=== PATIENT | female | born 1950 | race Caucasian/White ===

== ENCOUNTER 2017-03-22 20:52 | Emergency (ER) | payer MEDICARE, BC ==
[~2017-03-22] VITALS: Ht 165.1 cm; Wt 129.5 kg
[2017-03-22] MEDS ORDERED: NORVASC 10MG10 MG PO (21:26)
[2017-03-22] MEDS ORDERED: LASIX20 M1 PO (21:26)
[2017-03-22] MEDS ORDERED: SYNTHROID0.125 MG PO (21:26)
[2017-03-22] MEDS ORDERED: COZAAR100 MG PO (21:26)
[2017-03-22] MEDS ORDERED: ZYRTEC10 M3 PO (21:27)
[2017-03-22] MEDS ORDERED: PROTONIX TR40 M1 PO (21:27)
[2017-03-22] MEDS ORDERED: SINGULAIR PO (21:27)
[2017-03-22] MEDS ORDERED: ZOCOR10 M1 PO (21:27)
[2017-03-22] MEDS ORDERED: CALCIUM + D SO1 EACH PO (21:27)
[2017-03-22] MEDS ORDERED: NATURE'S BOUNTY1 TAB PO (21:28)
[2017-03-22] MEDS ORDERED: ASPIRIN 81M81 MG/TA2 PO (21:28)
[2017-03-22] MEDS ORDERED: FISH OIL1 IU PO (21:28)
[2017-03-22 22:00] VITALS: BP 180/88
== END 2017-03-22 22:00 | disposition home or self-care (01) ==
LOC: ED 20:52
DX: T63.461A Toxic effect of venom of wasps, accidental (unintentional), initial encounter (principal); L29.9 Pruritus, unspecified; I10 Essential (primary) hypertension; E03.9 Hypothyroidism, unspecified; E78.5 Hyperlipidemia, unspecified; K21.9 Gastro-esophageal reflux disease without esophagitis; J45.909 Unspecified asthma, uncomplicated

== ENCOUNTER → 2017-05-21 | Outpatient (CLI) | payer MEDICARE, BC ==
[~2017-05-21] MED LIST: ASPIRIN 81M81 MG/TA2 PO; CALCIUM + D SO1 EACH PO; COZAAR100 MG PO; FISH OIL1 IU PO; LASIX20 M1 PO; NATURE'S BOUNTY1 TAB PO; NORVASC 10MG10 MG PO; PROTONIX TR40 M1 PO; SINGULAIR PO; SYNTHROID0.125 MG PO; ZOCOR10 M1 PO; ZYRTEC10 M3 PO
== END ==
LOC: LAB 11:28
DX: I10 Essential (primary) hypertension (principal); E66.01 Morbid (severe) obesity due to excess calories

== ENCOUNTER → 2017-09-09 | Outpatient (CLI) | payer MEDICARE, BC | LOC: RAD 08:54 | DX: E04.1 Nontoxic single thyroid nodule (principal); E03.9 Hypothyroidism, unspecified; Z92.3 Personal history of irradiation ==

== ENCOUNTER → 2017-11-18 | Outpatient (CLI) | payer MEDICARE, BC ==
[2017-11-18 12:52] LABS: CALCIUM 10.4 mg/dL (8.4-10.2); POTASSIUM 4.3 mmol/L (3.6-5.0)
[2017-11-19 03:24] LABS: CREATININE OTHER SOURCE 35 mg/dL (())
== END ==
LOC: LAB 12:10
PROVIDERS: Internal Medicine
DX: E83.52 Hypercalcemia (principal); R60.0 Localized edema

== ENCOUNTER → 2018-05-18 | Outpatient (CLI) | payer MEDICARE, BC ==
[2018-05-19 00:34] LABS: CREATININE OTHER SOURCE 43 mg/dL (())
== END ==
LOC: LAB 13:58
PROVIDERS: Internal Medicine
DX: I15.8 Other secondary hypertension (principal)

== ENCOUNTER → 2018-11-19 | Outpatient (CLI) | payer MEDICARE, BC ==
[2018-11-19 09:00] LABS: CALCIUM 10.6 mg/dL (8.4-10.2)
[2018-11-19 18:07] LABS: CREATININE OTHER SOURCE 14 mg/dL (())
== END ==
LOC: LAB 08:25
PROVIDERS: Internal Medicine
DX: E83.52 Hypercalcemia (principal); I15.8 Other secondary hypertension

== ENCOUNTER → 2019-01-18 | Day surgery (SDC) | payer MEDICARE, BC | LOC: MSO 14:12 | DX: K21.9 Gastro-esophageal reflux disease without esophagitis (principal); Z79.82 Long term (current) use of aspirin; Z90.710 Acquired absence of both cervix and uterus; Z88.0 Allergy status to penicillin; Z88.2 Allergy status to sulfonamides; Z88.6 Allergy status to analgesic agent; Z88.5 Allergy status to narcotic agent; Z88.8 Allergy status to other drugs, medicaments and biological substances; I10 Essential (primary) hypertension; J45.909 Unspecified asthma, uncomplicated | CPT/HCPCS: 00731; J2704; J7120 ==

== ENCOUNTER 2019-02-05 22:18 | Emergency (ER) | payer MEDICARE, BC ==
[~2019-02-05] VITALS: Ht 165.1 cm; Wt 133.6 kg
[2019-02-05 23:22] VITALS: BP 155/79
== END 2019-02-05 23:22 | disposition home or self-care (01) ==
LOC: ED 22:18
DX: R04.0 Epistaxis (principal); I10 Essential (primary) hypertension; E78.5 Hyperlipidemia, unspecified; Z79.82 Long term (current) use of aspirin

== ENCOUNTER → 2019-04-25 | Outpatient (CLI) | payer MEDICARE, BC | LOC: VAS 15:27 → RAD 16:00 → VAS 16:00 | PROVIDERS: Internal Medicine Pulmonary Disease | DX: R06.02 Shortness of breath (principal) ==

== ENCOUNTER 2019-06-11 15:27 | Emergency (ER) | payer MEDICARE, BC ==
[~2019-06-11 15:27] MED LIST changes: -ASPIRIN 81M81 MG/TA2 PO; +ASPIRIN E.C. 8181 MG PO; +FISH OIL 1,0001 EAC1 PO; -FISH OIL1 IU PO
[2019-06-11] MEDS ORDERED: DOXYCYCLINE MO100 M3 PO (16:32)
[2019-06-11] MEDS ORDERED: RT ALBUTEROL CC18 GM IH (16:33)
[2019-06-11 16:57] LABS: EOS # 0.1 (0.04-0.40); EOS % 0.9 % (1.0-5.0); HEMATOCRIT 40.6 % (37.0-47.0); HEMOGLOBIN 12.8 g/dL (12.5-16.0); MEAN CELL VOLUME 89 fl (78-100); MEAN CORPUSCULAR HEMOGLOBIN 28 pg (27-31); MEAN CORPUSCULAR HGB CONC 32 g/dL (33-37); MEAN PLATELET VOLUME 9.6 fl (7.4-10.4); MONO # 0.5 (0.20-0.80); NEU # 5.2 (1.40-6.50); PLATELET COUNT 468 K/mm3 (130-400); RED BLOOD COUNT 4.55 M/mm3 (4.10-5.30); WHITE BLOOD COUNT 7.8 K/mm3 (4.8-10.8)
[2019-06-11 17:04] LABS: ALBUMIN 4.2 g/dL (3.4-4.8)
[2019-06-11 17:05] LABS: POTASSIUM 3.3 mmol/L (3.5-5.1)
[2019-06-11 17:06] LABS: CALCIUM 10.6 mg/dL (8.3-10.5)
[2019-06-11 17:07] LABS: TOTAL PROTEIN 7.2 g/dL (6.2-8.1)
[2019-06-11 17:09] LABS: TOTAL BILIRUBIN 0.4 mg/dL (0.2-1.2)
[2019-06-11 19:50] VITALS: BP 147/72
== END 2019-06-11 19:50 | disposition home or self-care (01) ==
LOC: ED 15:27
PROVIDERS: Family Medicine
DX: R06.1 Stridor (principal); I10 Essential (primary) hypertension; K21.9 Gastro-esophageal reflux disease without esophagitis; Z90.89 Acquired absence of other organs; Z90.710 Acquired absence of both cervix and uterus; Z99.81 Dependence on supplemental oxygen; Z91.14 Patient's other noncompliance with medication regimen
CPT/HCPCS: J0171; J1100; J1200; J2060; J3490; Q9967

== ENCOUNTER → 2019-09-20 | Outpatient (CLI) | payer MEDICARE, BC ==
[~2019-09-20] MED LIST changes: +DOXYCYCLINE MO100 M3 PO; +RT ALBUTEROL CC18 GM IH
[2019-09-20 12:14] LABS: ALBUMIN 4.2 g/dL (3.4-4.8); POTASSIUM 4.4 mmol/L (3.5-5.1)
[2019-09-20 12:16] LABS: CALCIUM 10.3 mg/dL (8.3-10.5)
== END ==
LOC: LAB 11:53
PROVIDERS: Internal Medicine Nephrology
DX: I15.8 Other secondary hypertension (principal)

== ENCOUNTER → 2020-07-10 | Outpatient (CLI) | payer MEDICARE, BC | LOC: LAB 14:08 | DX: D3A.8 Other benign neuroendocrine tumors (principal) ==

== ENCOUNTER → 2020-09-18 | Outpatient (CLI) | payer MEDICARE, BC ==
[2020-09-18 11:44] LABS: POTASSIUM 4.1 mmol/L (3.5-5.1)
[2020-09-18 11:45] LABS: CALCIUM 10.1 mg/dL (8.3-10.5)
== END ==
LOC: LAB 11:20
PROVIDERS: Internal Medicine Nephrology
DX: I15.8 Other secondary hypertension (principal); R60.0 Localized edema

== ENCOUNTER → 2020-10-18 | Outpatient (CLI) | payer MEDICARE, BC ==
[~2020-10-18] MED LIST changes: +CLEOCIN HCL150 M1 PO; +FOLIXAPURE5000 UNIT PO; +METOPROLOL SUCC25 M1 PO; -NATURE'S BOUNTY1 TAB PO
== END ==
LOC: RAD 17:56
DX: M25.561 Pain in right knee (principal)

== ENCOUNTER → 2020-10-22 | Outpatient (CLI) | payer MEDICARE, BC | LOC: RAD 10-19 13:45 → VAS 13:12 → RAD 13:45 | DX: M79.89 Other specified soft tissue disorders (principal); M25.561 Pain in right knee ==

== ENCOUNTER → 2020-11-08 | Outpatient (CLI) | payer MEDICARE, BC | LOC: RAD 15:58 | DX: M17.11 Unilateral primary osteoarthritis, right knee (principal); M23.306 Other meniscus derangements, unspecified meniscus, right knee ==

== ENCOUNTER 2021-02-02 03:15 | Emergency (ER) | payer MEDICARE, BC ==
[~2021-02-02 03:15] MED LIST changes: -CLEOCIN HCL150 M1 PO; -METOPROLOL SUCC25 M1 PO
[2021-02-02] MEDS ORDERED: METOPROLOL SUCC25 M1 PO (03:47)
[2021-02-02 04:42] LABS: BASO # 0.04 (0.02-0.10); EOS # 0.12 (0.04-0.40); EOS % 2.1 % (1.0-5.0); HEMATOCRIT 39.5 % (37.0-47.0); HEMOGLOBIN 13.2 g/dL (12.5-16.0); LYMPH# 1.34 (1.50-4.00); MEAN CELL VOLUME 89 fl (78-100); MEAN CORPUSCULAR HEMOGLOBIN 30 pg (27-31); MEAN CORPUSCULAR HGB CONC 33 g/dL (33-37); MEAN PLATELET VOLUME 9.2 fl (7.4-10.4); MONO # 0.35 (0.20-0.80); NEU # 3.89 (1.40-6.50); PLATELET COUNT 340 K/mm3 (130-400); RED BLOOD COUNT 4.42 M/mm3 (4.10-5.30); RED CELL DISTRIBUTION WIDTH 13.6 % (11.5-14.5); WHITE BLOOD COUNT 5.8 K/mm3 (4.8-10.8)
[2021-02-02 04:52] LABS: POTASSIUM 3.9 mmol/L (3.5-5.1)
[2021-02-02 04:54] LABS: CALCIUM 10.9 mg/dL (8.3-10.5)
[2021-02-02 05:11] LABS: URINE APPEARANCE CLEAR; URINE BILIRUBIN NEGATIVE (NEGATIVE); URINE BLOOD NEGATIVE (NEGATIVE); URINE COLOR YELLOW; URINE GLUCOSE NEGATIVE (NEGATIVE); URINE KETONE NEGATIVE (NEGATIVE); URINE LEUKOCYTE ESTERASE NEGATIVE (NEGATIVE); URINE NITRATE NEGATIVE (NEGATIVE); URINE PROTEIN(semi-quant) NEGATIVE (NEGATIVE); URINE UROBILINOGEN NORMAL (NORMAL); URINE WBC 0-1 /hpf (0-3)
[2021-02-02] MEDS ORDERED: CLEOCIN HCL150 M1 PO (05:44)
[2021-02-02 05:49] VITALS: BP 151/72
== END 2021-02-02 05:49 | disposition home or self-care (01) ==
LOC: ED 03:15
PROVIDERS: Family Medicine
DX: I10 Essential (primary) hypertension (principal); F41.9 Anxiety disorder, unspecified; E83.52 Hypercalcemia; L03.116 Cellulitis of left lower limb; K21.9 Gastro-esophageal reflux disease without esophagitis; E78.5 Hyperlipidemia, unspecified; Z79.899 Other long term (current) drug therapy

== ENCOUNTER → 2021-02-13 | Outpatient (CLI) | payer MEDICARE, BC ==
[~2021-02-13] MED LIST changes: +CLEOCIN HCL150 M1 PO; +METOPROLOL SUCC25 M1 PO
== END ==
LOC: RAD 14:20
DX: R22.32 Localized swelling, mass and lump, left upper limb (principal)

== ENCOUNTER → 2021-04-08 | Outpatient (CLI) | payer MEDICARE, BC | LOC: RAD 09:48 | DX: M79.605 Pain in left leg (principal); Z13.6 Encounter for screening for cardiovascular disorders ==

== ENCOUNTER 2021-08-05 08:08 | Emergency (ER) | payer MEDICARE, BC ==
[~2021-08-05] VITALS: Ht 165.1 cm; Wt 127.3 kg
[~2021-08-05 08:08] MED LIST changes: -FOLIXAPURE5000 UNIT PO; +VITAMIN D3125 MC2 PO
[2021-08-05 09:00] LABS: BASO # 0.03 K/mm3 (0.02-0.10); EOS # 0.07 K/mm3 (0.04-0.40); HEMOGLOBIN 12.1 g/dL (12.5-16.0); LYMPH# 0.86 K/mm3 (1.50-4.00); MEAN CELL VOLUME 90 fl (78-100); MEAN CORPUSCULAR HEMOGLOBIN 28 pg (27-31); MEAN CORPUSCULAR HGB CONC 31 g/dL (33-37); MEAN PLATELET VOLUME 9.6 fl (7.4-10.4); MONO # 0.53 K/mm3 (0.20-0.80); NEU # 5.62 K/mm3 (1.40-6.50); PLATELET COUNT 374 K/mm3 (130-400); RED BLOOD COUNT 4.35 M/mm3 (4.10-5.30); WHITE BLOOD COUNT 7.1 K/mm3 (4.8-10.8)
[2021-08-05 09:10] LABS: CALCIUM 11.4 mg/dL (8.3-10.5)
[2021-08-05] MEDS ORDERED: AZITHROMYCIN 250MGPK PO (11:39)
[2021-08-05 11:54] VITALS: BP 177/81
[2021-08-05] MEDS ORDERED: PROAIR HFA0.09 MG/AC IH (11:58)
== END 2021-08-05 12:01 | disposition home or self-care (01) ==
LOC: ED 08:08
PROVIDERS: Nurse Practitioner
DX: J18.9 Pneumonia, unspecified organism (principal); J45.909 Unspecified asthma, uncomplicated; I10 Essential (primary) hypertension; E03.9 Hypothyroidism, unspecified; E78.00 Pure hypercholesterolemia, unspecified; K21.9 Gastro-esophageal reflux disease without esophagitis; E55.9 Vitamin D deficiency, unspecified; E66.9 Obesity, unspecified; Z85.118 Personal history of other malignant neoplasm of bronchus and lung; Z20.822 Contact with and (suspected) exposure to COVID-19; Z91.040 Latex allergy status; Z88.0 Allergy status to penicillin; Z88.2 Allergy status to sulfonamides; Z88.1 Allergy status to other antibiotic agents; Z79.890 Hormone replacement therapy; Z79.899 Other long term (current) drug therapy

== ENCOUNTER → 2021-08-12 | Outpatient (CLI) | payer MEDICARE, BC ==
[~2021-08-12] MED LIST changes: +AZITHROMYCIN 250MGPK PO; +PROAIR HFA0.09 MG/AC IH
== END ==
LOC: RAD 08:59
DX: C34.90 Malignant neoplasm of unspecified part of unspecified bronchus or lung (principal); R16.0 Hepatomegaly, not elsewhere classified
CPT/HCPCS: Q9967

== ENCOUNTER → 2021-08-15 | Outpatient (CLI) | payer MEDICARE, BC | LOC: RAD 09:54 | DX: C34.90 Malignant neoplasm of unspecified part of unspecified bronchus or lung (principal); R16.0 Hepatomegaly, not elsewhere classified; Z90.710 Acquired absence of both cervix and uterus | CPT/HCPCS: Q9967 ==

== ENCOUNTER → 2021-09-17 | Outpatient (CLI) | payer MEDICARE, BC ==
[2021-09-17 16:23] LABS: CALCIUM 10.9 mg/dL (8.3-10.5)
== END ==
LOC: LAB 16:01
PROVIDERS: Internal Medicine Nephrology
DX: I15.8 Other secondary hypertension (principal); R60.0 Localized edema

== ENCOUNTER → 2021-09-20 | Outpatient (CLI) | payer MEDICARE, BC ==
[2021-09-20 22:06] LABS: CREATININE OTHER SOURCE 87 mg/dL (())
== END ==
LOC: LAB 10:05
PROVIDERS: Internal Medicine Nephrology
DX: I15.8 Other secondary hypertension (principal); R60.0 Localized edema

== ENCOUNTER → 2021-09-30 | Outpatient (CLI) | payer MEDICARE, BC | LOC: LAB 12:39 | DX: C7A.090 Malignant carcinoid tumor of the bronchus and lung (principal) ==

== ENCOUNTER → 2021-12-03 | Outpatient (CLI) | payer MEDICARE, BC | LOC: RAD 08:48 | DX: D3A.8 Other benign neuroendocrine tumors (principal); K57.30 Diverticulosis of large intestine without perforation or abscess without bleeding | CPT/HCPCS: Q9967 ==

== ENCOUNTER → 2022-01-31 | Outpatient (CLI) | payer MEDICARE, BC | LOC: LAB 13:50 | DX: U07.1 COVID-19 (principal) ==

== ENCOUNTER → 2022-03-03 | Outpatient (CLI) | payer MEDICARE, BC | LOC: RAD 09:46 | DX: C7A.090 Malignant carcinoid tumor of the bronchus and lung (principal) ==

== ENCOUNTER → 2022-06-18 | Outpatient (CLI) | payer MEDICARE, BC | LOC: LAB 14:13 | DX: D3A.8 Other benign neuroendocrine tumors (principal) ==

== ENCOUNTER → 2022-10-01 | Outpatient (CLI) | payer MEDICARE, BC ==
[2022-10-01 15:55] LABS: URINE APPEARANCE CLEAR; URINE COLOR YELLOW
[2022-10-01 15:56] LABS: URINE BILIRUBIN NEGATIVE (NEGATIVE); URINE BLOOD NEGATIVE (NEGATIVE); URINE GLUCOSE NEGATIVE (NEGATIVE); URINE KETONE NEGATIVE (NEGATIVE); URINE LEUKOCYTE ESTERASE NEGATIVE (NEGATIVE); URINE MUCUS PRESENT (NOT PRESENT); URINE NITRATE NEGATIVE (NEGATIVE); URINE PROTEIN(semi-quant) 1+ (NEGATIVE); URINE UROBILINOGEN NORMAL (NORMAL); URINE WBC 0-1 /hpf (0-3)
== END ==
LOC: LAB 15:43
PROVIDERS: Family Medicine
DX: C34.90 Malignant neoplasm of unspecified part of unspecified bronchus or lung (principal); J06.9 Acute upper respiratory infection, unspecified; R30.0 Dysuria

== ENCOUNTER → 2022-10-07 | Outpatient (CLI) | payer MEDICARE, BC | LOC: RAD 09:44 | DX: D3A.8 Other benign neuroendocrine tumors (principal); K44.9 Diaphragmatic hernia without obstruction or gangrene; R91.8 Other nonspecific abnormal finding of lung field | CPT/HCPCS: Q9967 ==

== ENCOUNTER → 2022-10-21 | Outpatient (CLI) | payer MEDICARE, BC | LOC: RAD 11:33 | DX: D3A.8 Other benign neuroendocrine tumors (principal) | CPT/HCPCS: A9575 ==

== ENCOUNTER → 2022-12-03 | Outpatient (CLI) | payer MEDICARE, BC ==
[~2022-12-03] MED LIST changes: +CEPHALEXIN500 M2 PO
== END ==
LOC: RAD 10:41
DX: R60.0 Localized edema (principal)

== ENCOUNTER → 2023-06-02 | Outpatient (CLI) | payer MEDICARE, BC ==
[~2023-06-02] MED LIST changes: +ZITHROMAX Z PA250 MG PO
== END ==
LOC: RAD 09:24
DX: K76.9 Liver disease, unspecified (principal); D3A.8 Other benign neuroendocrine tumors
CPT/HCPCS: A9575

== ENCOUNTER → 2023-10-08 | Outpatient (REF) | payer MEDICARE, BC | LOC: LAB 10:03 | DX: U07.1 COVID-19 (principal) ==

== ENCOUNTER → 2023-12-16 | Outpatient (CLI) | payer MEDICARE, BC | LOC: LAB 11:35 | DX: K30 Functional dyspepsia (principal) ==

== ENCOUNTER 2023-12-22 17:52 | Emergency (ER) | payer MEDICARE, BC ==
[~2023-12-22] VITALS: Ht 162.6 cm; Wt 126.8 kg
[2023-12-22 19:20] LABS: BASO # 0.01 K/mm3 (0.02-0.10); EOS # 0.09 K/mm3 (0.04-0.40); EOS % 1.5 % (1.0-5.0); HEMATOCRIT 34.3 % (37.0-47.0); HEMOGLOBIN 10.7 g/dL (12.5-16.0); LYMPH# 1.62 K/mm3 (1.50-4.00); MEAN CELL VOLUME 85 fl (78-100); MEAN CORPUSCULAR HEMOGLOBIN 27 pg (27-31); MEAN CORPUSCULAR HGB CONC 31 g/dL (33-37); MEAN PLATELET VOLUME 9.6 fl (7.4-10.4); MONO # 0.42 K/mm3 (0.20-0.80); NEU # 3.82 K/mm3 (1.40-6.50); PLATELET COUNT 345 K/mm3 (130-400); RED BLOOD COUNT 4.03 M/mm3 (4.10-5.30); RED CELL DISTRIBUTION WIDTH 15.2 % (11.5-14.5)
[2023-12-22 19:30] LABS: ALBUMIN 4.1 g/dL (3.4-4.8)
[2023-12-22 19:31] LABS: CALCIUM 11.1 mg/dL (8.3-10.5)
[2023-12-22 19:32] LABS: D-DIMER 0.63 mg/L FEU (0.15-0.50)
[2023-12-22 19:33] LABS: TOTAL PROTEIN 7.2 g/dL (6.2-8.1)
[2023-12-22 19:34] LABS: TOTAL BILIRUBIN 0.5 mg/dL (0.2-1.2)
[2023-12-22 22:42] VITALS: BP 155/59
== END 2023-12-22 22:49 | disposition home or self-care (01) ==
LOC: ED 17:52
PROVIDERS: Physician Assistant
DX: R07.89 Other chest pain (principal); K30 Functional dyspepsia; Z82.49 Family history of ischemic heart disease and other diseases of the circulatory system

== ENCOUNTER → 2024-02-01 | Outpatient (CLI) | payer MEDICARE, BC | LOC: RAD 15:36 | DX: I35.0 Nonrheumatic aortic (valve) stenosis (principal); I51.7 Cardiomegaly ==

== ENCOUNTER → 2024-05-07 | Outpatient (REF) | payer MEDICARE, BC | LOC: LAB 11:36 | DX: R05.9 Cough, unspecified (principal) ==

== ENCOUNTER → 2024-05-11 | Outpatient (CLI) | payer MEDICARE, BC ==
[2024-05-11 14:40] LABS: BASO # 0.02 K/mm3 (0.02-0.10); HEMATOCRIT 35.3 % (37.0-47.0); LYMPH# 1.51 K/mm3 (1.50-4.00); MEAN CELL VOLUME 85 fl (78-100); MEAN CORPUSCULAR HEMOGLOBIN 26 pg (27-31); MEAN CORPUSCULAR HGB CONC 31 g/dL (33-37); MEAN PLATELET VOLUME 9.5 fl (7.4-10.4); MONO # 0.39 K/mm3 (0.20-0.80); NEU # 2.91 K/mm3 (1.40-6.50); PLATELET COUNT 342 K/mm3 (130-400); RED BLOOD COUNT 4.17 M/mm3 (4.10-5.30); RED CELL DISTRIBUTION WIDTH 15.4 % (11.5-14.5); WHITE BLOOD COUNT 4.9 K/mm3 (4.8-10.8)
[2024-05-11 14:50] LABS: ALBUMIN 4.2 g/dL (3.4-4.8); SODIUM 140 mmol/L (136-145)
[2024-05-11 14:52] LABS: GLUCOSE 99 mg/dL (65-105); TOTAL PROTEIN 7.3 g/dL (6.2-8.1)
[2024-05-11 14:53] LABS: CARBON DIOXIDE 24 mmol/L (23-31)
[2024-05-11 14:54] LABS: TOTAL BILIRUBIN 0.6 mg/dL (0.2-1.2)
[2024-05-11 14:58] LABS: AST-SGOT 19 U/L (5-34)
[2024-05-11 14:59] LABS: ALT/SGPT 13 U/L (0-55)
[2024-05-11 15:10] LABS: TROPONIN-I < 0.030 ng/mL (0.00-0.033)
[2024-05-11 15:39] LABS: URINE APPEARANCE CLEAR (CLEAR); URINE BILIRUBIN NEGATIVE (NEGATIVE); URINE BLOOD NEGATIVE (NEGATIVE); URINE COLOR YELLOW (YELLOW); URINE GLUCOSE NEGATIVE (NEGATIVE); URINE KETONE NEGATIVE (NEGATIVE); URINE LEUKOCYTE ESTERASE 1+ (NEGATIVE); URINE NITRATE NEGATIVE (NEGATIVE); URINE PROTEIN(semi-quant) NEGATIVE (NEGATIVE)
== END ==
LOC: LAB 14:18
PROVIDERS: Nurse Practitioner
DX: R30.0 Dysuria (principal); R07.9 Chest pain, unspecified; R53.81 Other malaise; R05.9 Cough, unspecified; R82.79 Other abnormal findings on microbiological examination of urine

== ENCOUNTER 2024-09-19 21:45 | Emergency (ER) | payer MEDICARE, BC ==
[~2024-09-19] VITALS: Ht 165.1 cm; Wt 122.7 kg
[2024-09-19 23:10] VITALS: BP 170/63
== END 2024-09-19 23:10 | disposition home or self-care (01) ==
LOC: ED 21:45
DX: S09.90XA Unspecified injury of head, initial encounter (principal); S00.83XA Contusion of other part of head, initial encounter; S00.31XA Abrasion of nose, initial encounter; Z79.82 Long term (current) use of aspirin; Z91.040 Latex allergy status; W01.198A Fall on same level from slipping, tripping and stumbling with subsequent striking against other object, initial encounter